=== PATIENT | female | born 1980 | race Caucasian/White ===

== ENCOUNTER 2020-05-29 18:54 | Emergency (ER) | payer MEDICAID ==
[~2020-05-29] VITALS: Ht 162.6 cm; Wt 86.4 kg
[2020-05-29 18:59] VITALS: TEMP 97.7
[2020-05-29] MEDS ORDERED: NORCO 325 MG-51 TAB PO (19:23)
[2020-05-29] MEDS ORDERED: AMOXICILLIN 50500 MG PO (19:23)
[2020-05-29 19:50] VITALS: BP 165/84; PULSE 104
== END 2020-05-29 19:50 | disposition home or self-care (01) ==
LOC: COL.ER 18:54
DX: S02.5XXA Fracture of tooth (traumatic), initial encounter for closed fracture (principal); I10 Essential (primary) hypertension; F17.200 Nicotine dependence, unspecified, uncomplicated; X58.XXXA Exposure to other specified factors, initial encounter